=== PATIENT | female | born 1990 | race African-American/Black ===

== ENCOUNTER 2019-03-03 18:54 | Emergency (ER) | payer BC | END 2019-03-03 20:05 | disposition home or self-care (01) | LOC: SCSER 18:54 | DX: M94.0 Chondrocostal junction syndrome [Tietze] (principal) | CPT/HCPCS: 93005 ==

== ENCOUNTER 2020-06-19 11:32 | Outpatient (CLI) | payer BC ==
[~2020-06-19 11:32] MED LIST: Magnevist 469MG/ML 20 ML VIAL ONE
--- NOTE | 2020-06-19 14:01 | MRI ---
MRI BRAIN WITH AND WITHOUT IV CONTRAST: 06/19/20 HISTORY: Complex partial seizures. FINDINGS: No infarct, hemorrhage, mass or midline shift are seen. The ventricular size is normal and the basila r cisterns patent. No restricted diffusion or abnormal postcontrast enhancement is noted. The hippoca mpi are bilaterally symmetric without signal abnormality. No signal abnormalities are noted on the hi ghly sensitive FLAIR images. No blood products are seen on the gradient echo sequences. The visualize d paranasal sinuses and mastoids cells are well aerated. There is a arachnoid cyst in the left middle cranial fossa. This measures about 3 x 1.9 x 3.2 cm. IMPRESSION: Arachnoid cyst in the left middle cranial fossa, otherwise unremarkable exam. POS: AH
--- NOTE | 2020-06-21 09:04 | EEG ---
DATE OF SERVICE: DESCRIPTION OF THE RECORD: The waking background is a well-modulated 9 hertz alpha frequency. The patient became drowsy during the study, but no sleep was seen. Hyperventilation and photic stimulation were unremarkable. No epileptiform features were present. IMPRESSION: This is a normal awake and drowsy EEG. Job ID: [id number]
== END 2020-06-19 11:33 | disposition home or self-care (01) ==
LOC: MRI 11:32
PROVIDERS: ATTEND Psychiatry & Neurology Neurology
DX: G40.209 Localization-related (focal) (partial) symptomatic epilepsy and epileptic syndromes with complex partial seizures, not intractable, without status epilepticus (principal); G93.0 Cerebral cysts
CPT/HCPCS: 70553; 95816